=== PATIENT | male | born 1995 | race Caucasian/White ===

== ENCOUNTER 2017-04-22 16:55 | Emergency (ER) | payer BC ==
[~2017-04-22] VITALS: Ht 180.3 cm; Wt 71.3 kg
[2017-04-22 17:08] VITALS: TEMP 36.9; Ht 180.3 cm; Wt 71.3 kg
--- NOTE | 2017-04-22 17:22 | EMERGENCY ROOM VISIT NOTE ---
ED Visit Note First contact with patient: 17:15 Chief Complaint: "Infected cut on right middle finger". History of Present Illness: This patient is a 21-year-old male who presents to the Emergency Department via private vehicle for evaluation of their right third digit medial aspect laceration. Patient sustained the laceration while taking out the garbage last night. They report a moderate amount of bleeding initially. They deny any numbness or tingling into the distal extremity. They report no decreased range of motion of the affected digit. Patient rates his current discomfort as a 3/10. Patient's Tetanus status is not currently up-to- date. Medications: As noted below Allergies: Augmenti PMH: No pertinent SHx: Patient lives locally with friends ROS: All pertinent positive and negative review of systems are appropriately documented in the History of Present Illness. Physical Exam: VITAL SIGNS - Vital signs and nursing notes were reviewed. Stable. Afebrile. GENERAL -21-year-old male appearing his stated age who is in no acute distress. Communicates well with provider and answers questions appropriately. SKIN - There is a 1 cm long laceration noted along the medial aspect of the midshaft of the right third digit. The edges do not gape apart with traction. No foreign bodies appreciated. Upon further examination there are no deep structures including vessel, tendon, or bony structures appreciated. There is no active bleeding noted. MUSCULOSKELETAL - Laceration as described above. +5/5 strength appreciated of the affected digit. Full range of motion of the affected digit. NEUROLOGIC - he is neurologically intact in this region. VASCULAR - Capillary refill was brisk. IMAGING: RIGHT MIDDLE FINGER 3 VIEWS HISTORY: Right 3rd digit laceration, erythema COMPARISON: None. FINDINGS: There is no fracture or dislocation. Soft tissues are unremarkable. No radiopaque foreign bodies. IMPRESSION: No fractures. Electronically signed by: Zachery Parker M.D. 04/22/2017 5:55 PM Dictated Date/Time: 04/22/2017 5:54 PM ED Course: Patient was seen and evaluated by myself. The wound has been open for quite some time, and is superficial. No evidence of requiring any type of closure. There is a small amount of bile film at the location of the laceration, but no evidence of overt infection. No evidence of tendon or joint capsule involvement. No evidence of open fracture. X-ray was obtained with results as above. No acute process. He was given Keflex here. I thoroughly cleansed the wound with normal saline and Betadine. This was bandaged with a bacitracin dressing, and splinted with a metal splint. He was unsure what made cut him, but does not think it was a needle, or anything infectious. He declines testing for hepatitis and HIV, as well as prophylaxis. He will have a Keflex prescription of which she is to take the next 10 days. This is for any potential underlying early infection. There is no lymphangitic streaking or fever. He is to watch for worsening signs of infection and return. He was educated upon management. Patient received their Adacel vaccination. Patient educated on worrisome symptoms for return visit to the Emergency Department. Patient discharged to home in good condition. In the evaluation and treatment of this patient, the following differential diagnoses were considered: Finger Fracture, Finger Dislocation, Finger Sprain, Finger Contusion, Jersey Finger, or Mallet Finger. Current/Historical Medications Scheduled Cephalexin Monohydrate (Keflex), 500 MG PO QID Multivitamin (Multivitamin), 1 TAB PO DAILY Allergies Coded Allergies: Amoxicillin (Verified Allergy, Intermediate, Rash, 04/22/17) Clavulanic Acid (Verified Allergy, Intermediate, Rash, 04/22/17) Vital Signs Date Time Temp Pulse Resp B/P (MAP) Pulse Ox O2 Delivery O2 Flow Rate FiO2 04/22/17 17:08 36.9 74 20 131/76 100 Room Air Medications Administered Medications (Trade) Dose Ordered Sig/Parveen Route Start Time Stop Time Status Last Admin Dose Admin Cephalexin Monohydrate (Keflex Cap) 500 mg NOW STAT PO 04/22/17 17:23 04/22/17 17:24 DC 04/22/17 17:35 500 MG Cephalexin Monohydrate (Keflex 500MG Home Pack) 1 homepack NOW STAT PO 04/22/17 17:23 04/22/17 17:24 DC 04/22/17 17:35 1 HOMEPACK Diphtheria/ Pertussis/Tetanus Vacc (Adacel Inj) 0.5 ml ONCE ONCE IM. 04/22/17 17:30 04/22/17 17:31 DC 04/22/17 17:37 0.5 ML Departure Information Impression Primary Impression: Finger laceration Additional Impression: Cellulitis Dispostion Home / Self-Care Condition GOOD Prescriptions Cephalexin Monohydrate (Keflex) 500 Mg Cap 500 MG PO QID, #35 CAP Prov: Ortiz Carter PA-C 04/22/17 Referrals No Doctor, Assigned (PCP) Patient Instructions My [facility] Additional Instructions Discharge Instructions: Please wear the splint for comfort until the wound is healed Keflex 500mg every 6 hours for 10 days. The remainder was sent to your pharmacy for pickup. This is an antibiotic to prevent infection. Proper wound care is essential for adequate wound healing and infection prevention. You can shower and clean the wound with soap and water. Do not scour over the wound, pat dry with a towel. Do not submerse the wound (i.e. bathe or dish wash) until the wound is healed (about 7 days). You can use an antibiotic ointment with a dressing over the wound for the next 3-4 days. After this time you may leave the wound dry and open to the air. If crust develops over the wound you can use a Q-tip to apply a 1:1 peroxide:water solution to clean the wound. Look for signs of infection of the wound including: increased pain, swelling, foul discharge, streaking, or increased temperature. If any of these are noticed you should return to the Emergency Department for further assessment and treatment. As with any laceration you may have received nerve damage to the surrounding tissues. This damage may or may not be permanent. You should keep the area covered with sunscreen for the first 6 months to 1 year when at risk for exposure to help minimize scarring. You can also use scar reducing creams or Vitamin E oil to help minimize scarring. For pain control, you can use the following bija-dno-laaohob medicines: - Regular strength (325mg/tab) Tylenol (acetaminophen) 2 tabs every 4-6 hours as needed. Do not exceed 12 tablets in a 24 hour period. Avoid taking more than 3 grams (3000 mg) of Tylenol per day. This includes any other sources of acetaminophen you may take on a regular basis. - Regular strength (200 mg/tab) Advil (ibuprofen) 1-2 tabs every 4-6 hours as needed. Do not exceed a dose of 3200 mg per day. Return to the emergency department if your symptoms worsen despite treatment course outlined above. Problem Qualifiers Primary Impression: Finger laceration Encounter type: initial encounter Finger: middle finger Damage to nail status: without damage Foreign body presence: without foreign body Laterality: right Qualified Codes: S61.212A - Laceration without foreign body of right middle finger without damage to nail, initial encounter Additional Impression: Cellulitis Site of cellulitis of extremity: finger Laterality: right
[2017-04-22] MEDS ORDERED: CEPHALEXIN MONOHYDRATE 250 MG CAP PO STA (17:23)
[2017-04-22] MEDS ORDERED: CEPHALEXIN 500MG HOME PACK 1 EA BTL PO STA (17:23)
[2017-04-22] MEDS ORDERED: DIPHTHERIA/TETANUS/PERTUSSIS 0.5 ML SYR/VIAL IM. ONE (17:30)
[2017-04-22] MEDS ORDERED: MULT-506 PO (17:49)
--- NOTE | 2017-04-22 17:56 | DIAGNOSTIC IMAGING REPORT ---
RIGHT MIDDLE FINGER 3 VIEWS HISTORY: Right 3rd digit laceration, erythema COMPARISON: None. FINDINGS: There is no fracture or dislocation. Soft tissues are unremarkable. No radiopaque foreign bodies. IMPRESSION: No fractures. Electronically signed by: Zachery Parker M.D. 04/22/2017 5:55 PM Dictated Date/Time: 04/22/2017 5:54 PM
[2017-04-22] MEDS ORDERED: CEPH500C PO (17:59)
[2017-04-22 18:28] VITALS: BP 114/63; PULSE 66; O2SAT 98
== END 2017-04-22 18:33 | disposition home or self-care (01) ==
LOC: C.EDB 16:58 → C.EDD 18:33
DX: S61.214A Laceration without foreign body of right ring finger without damage to nail, initial encounter (principal); L03.011 Cellulitis of right finger; W26.8XXA Contact with other sharp object(s), not elsewhere classified, initial encounter

== ENCOUNTER 2017-10-02 16:14 | Emergency (ER) | payer BC ==
[~2017-10-02] VITALS: Ht 182.9 cm; Wt 70.9 kg
[~2017-10-02 16:14] MED LIST: CEPH500C PO; MULT-506 PO
[2017-10-02 16:16] VITALS: Ht 182.9 cm; Wt 70.9 kg
[2017-10-02] MEDS ORDERED: DiphenhydrAMINE HCL 50 MG/ML VIAL IV STA (16:29)
[2017-10-02] MEDS ORDERED: SODIUM CHLORIDE 0.9% 1000ML 1,000 ML IV STA (16:29)
[2017-10-02] MEDS ORDERED: FAMOTIDINE 20MG/5ML IV PUSH IV STA (16:29)
[2017-10-02 16:34] VITALS: O2SAT 98
--- NOTE | 2017-10-02 16:42 | EMERGENCY ROOM VISIT NOTE ---
ED Visit Note First contact with patient: 16:20 CHIEF COMPLAINT: Allergic reaction HISTORY OF PRESENT ILLNESS: This 21-year-old male patient presents to the emergency department by private vehicle with his friend after they developed sudden onset of throat tightness and itching all over around 4 PM today. Patient states that he took an afternoon nap, when he woke up he felt itchy all over, states "it felt like I was getting hives, and I have had some red spots on my chest and arms." He states yesterday that he was diagnosed with strep throat and was started on penicillin, he has taken 5 doses of this, including 1 dose right before he laid down to take his nap. Patient does report a similar reaction to Augmentin in the past, but states that he has been on penicillin before without difficulty. The patient does not have swelling of the face and lips and does not have a sensation of swelling in the throat. The patient has not had shortness of breath. He denies taking any medications such as Benadryl for his symptoms. He does report that he was wearing a new shirt today that he has not washed, but states that he has itching on his legs as well as his arms and torso. There has been no other known change in the patient's soaps, detergents, foods, medications, or other environmental factors. He denies any fevers or chills, wheezing, cough, chest pain, nausea or vomiting, diarrhea, urinary symptoms. REVIEW OF SYSTEMS: A review of systems was performed with positives and pertinent negatives listed in the history of present illness. All other systems were reviewed and are negative. ALLERGIES: Reviewed in chart. MEDICATIONS: Reviewed in chart. PMH: No significant past medical or surgical history. He is up-to-date on immunizations. SOCIAL HISTORY: Lives at home. He is a [employer] student. He denies tobacco use. PHYSICAL EXAM:VITALS: Vitals are noted on the nurse's note and reviewed by myself. Vital signs stable. GENERAL: Pleasant and cooperative, in no acute distress, non-diaphoretic, well- developed well-nourished. THROAT: Moderate pharyngeal edema and erythema, no exudates or tonsillar hypertrophy. No uvular swelling. No tongue or intraoral swelling. Airway patent. LUNGS: Clear to auscultation and breath sounds equal , no wheezes, rales, or rhonchi. No stridor. EYES: PERRLA, EOMI, no discharge or injection. NEUROLOGICAL: Alert and oriented to person, place, and time. Normal sensation to light and sharp touch. HEART: Regular rate without murmurs , ectopy, gallops, or rubs. SKIN: No visible rash or urticaria noted. There are blotchy pink areas noted on the chest, arms, and legs that appear consistent with valladares from scratching. No open skin areas. The lips are not swollen. There is no periorbital swelling. EMERGENCY DEPARTMENT COURSE: I examined the patient. The patient was given IV fluid bolus, IV Benadryl and IV Pepcid. He was also given IV Decadron for his strep pharyngitis, given the moderate tonsillar edema. He felt much improved after treatment. I discussed with the patient the concern for him to continue the penicillin due to an apparent allergic reaction, I instructed him to stop taking the penicillin. He states that he has taken a 10-day course of Keflex in the past without any difficulties, Keflex was prescribed to continue treatment for his strep throat infection and he was given his first dose in the ED. The patient was encouraged to follow closely with his primary care provider /[facility] for any ongoing issues, and was also given strict return precautions should his symptoms return or worsen. He was discharged home in stable condition and ambulatory. Current/Historical Medications Scheduled Cephalexin Monohydrate (Keflex), 500 MG PO BID Allergies Coded Allergies: Amoxicillin (Verified Allergy, Intermediate, Rash, 04/22/17) Clavulanic Acid (Verified Allergy, Intermediate, Rash, 04/22/17) Vital Signs Date Time Temp Pulse Resp B/P (MAP) Pulse Ox O2 Delivery O2 Flow Rate FiO2 10/02/17 19:12 60 17 124/60 98 10/02/17 16:51 59 10/02/17 16:34 98 Room Air 10/02/17 16:20 98 Room Air 10/02/17 16:16 36.8 78 17 127/59 98 Room Air Medications Administered Medications (Trade) Dose Ordered Sig/Parveen Route Start Time Stop Time Status Last Admin Dose Admin Sodium Chloride 1,000 ml @ 999 mls/hr Q1H1M STAT IV 10/02/17 16:29 10/02/17 17:29 DC 10/02/17 16:45 999 MLS/HR Diphenhydramine HCl (Benadryl Inj) 50 mg NOW STAT IV 10/02/17 16:29 10/02/17 16:32 DC 10/02/17 16:47 50 MG Famotidine (Pepcid 20mg Iv Push) 20 mg NOW STAT IV 10/02/17 16:29 10/02/17 16:32 DC 10/02/17 16:47 20 MG Dexamethasone Sodium Phosphate (Decadron Inj) 10 mg NOW STAT IV 10/02/17 16:57 10/02/17 16:58 DC 10/02/17 17:07 10 MG Cephalexin Monohydrate (Keflex Cap) 500 mg NOW ONCE PO 10/02/17 18:45 10/02/17 18:46 DC 10/02/17 19:06 500 MG Departure Information Impression Primary Impression: Allergic reaction Additional Impression: Strep throat Dispostion Home / Self-Care Condition GOOD Prescriptions Cephalexin Monohydrate (Keflex) 500 Mg Cap 500 MG PO BID for 10 Days, #20 CAP Prov: Nicole Lopes CRNP 10/02/17 Referrals No Doctor, Assigned (PCP) [facility] Patient Instructions ED Drug React Allergic, My [facility] Additional Instructions DISCHARGE INSTRUCTIONS & TREATMENT: STOP taking the penicillin immediately. You were prescribed Keflex to be taken twice a day for 10 days. This is an antibiotic to treat your strep throat. All antibiotics have the potential to cause diarrhea. Stop this medication and contact a medical provider if you were to develop any significant adverse side effects including: wheezing, shortness of breath, passing out, vomiting, or a diffuse rash. Always take antibiotics as directed and COMPLETE the ENTIRE course regardless of the improvement of your symptoms. You may take the following [id number] medications to help prevent return of itching and hives: - Benadryl 25-50 mg every 6 hrs PLUS Zantac 150 mg every 12 hrs PLUS Claritin once a day for for the next 2-3 days. Try to stay cool - no hot showers or working out for the next few days. Follow-up your family doctor or [facility] if symptoms persist. Please return to the emergency department for any worsening symptoms including chest pain, shortness of breath or wheezing, tongue or facial swelling, difficulty swallowing, persistent vomiting or diarrhea, severe dizziness or passing out, persistent high fevers, or any other concerns. School Instructions Return To School: 1 day Problem Qualifiers Primary Impression: Allergic reaction Encounter type: initial encounter Qualified Codes: T78.40XA - Allergy, unspecified, initial encounter
[2017-10-02] MEDS ORDERED: DEXAMETHASONE SOD INJ 4 MG/ML VIAL IV STA (16:57)
[2017-10-02] MEDS ORDERED: CEPH500C PO (18:37)
[2017-10-02] MEDS ORDERED: CEPHALEXIN MONOHYDRATE 250 MG CAP PO ONE (18:45)
[2017-10-02 19:12] VITALS: BP 124/60; PULSE 60; O2SAT 98
== END 2017-10-02 19:13 | disposition home or self-care (01) ==
LOC: C.EDB 16:15 → C.EDC 19:13
DX: R09.89 Other specified symptoms and signs involving the circulatory and respiratory systems (principal); T36.0X5A Adverse effect of penicillins, initial encounter; X58.XXXA Exposure to other specified factors, initial encounter; J02.0 Streptococcal pharyngitis; Z88.0 Allergy status to penicillin